=== PATIENT | male | born 1965 | race African-American/Black ===

== ENCOUNTER 2019-09-13 18:12 | Emergency (ER) | payer SELFPAY ==
[~2019-09-13] VITALS: Ht 182.9 cm; Wt 70.0 kg
[2019-09-13 18:29] VITALS: BP 131/99
== END 2019-09-13 20:45 | disposition left against medical advice (07) ==
LOC: ER 18:12
DX: F10.129 Alcohol abuse with intoxication, unspecified (principal); Z53.21 Procedure and treatment not carried out due to patient leaving prior to being seen by health care provider